=== PATIENT | male | born 1980 | race Hispanic/Latino ===

== ENCOUNTER 2024-08-21 12:15 | Observation (INO) | payer OTHER ==
[~2024-08-21] VITALS: Ht 165.1 cm; Wt 81.6 kg
[2024-08-21] VITALS (8 sets, daily range): BP systolic 131–133; BP diastolic 63–91; PULSE 59–90; RESP 17–20; TEMP 98–98.5; O2SAT 98–100
[2024-08-21] MEDS: HYDROCODONE/APAP 7.5MG-325MG 1 EA TAB PO STA (13:30)
[2024-08-21] MEDS: ONDANSETRON HCL 4 MG ORAL DISINTEGRATING TAB PO ONE (13:30)
[2024-08-21 15:55] LABS: BASOPHILS # (AUTO) 0.1 (0.0-0.1); BASOPHILS % 0.8 % (0.0-1.0); EOSINOPHILS # (AUTO) 0.1 (0.0-0.4); EOSINOPHILS % 0.8 % (0.0-6.0); HEMATOCRIT 44.4 % (38.2-49.6); LYMPHOCYTES # (AUTO) 1.9 (1.0-3.2); LYMPHOCYTES % 29.7 % (18.0-39.1); MEAN CORPUSCULAR HEMOGLOBIN 27.7 pg (28-32); MEAN CORPUSCULAR HGB CONC 33.8 g/dL (31-35); MEAN CORPUSCULAR VOLUME 82.1 fL (81-99); MONOCYTES # (AUTO) 0.7 (0.2-0.8); NEUTROPHILS # (AUTO) 3.7 (2.1-6.9); NEUTROPHILS % 57.5 % (38.7-80.0); PLATELET COUNT 278 x10e3/uL (140-360); RED BLOOD COUNT 5.41 x10e6/uL (4.3-5.7); WHITE BLOOD COUNT 6.37 x10e3/uL (4.8-10.8)
[2024-08-21 16:05] LABS: INR 0.96; PROTHROMBIN TIME 13.4 seconds (11.9-14.5)
[2024-08-21 16:06] LABS: PARTIAL THROMBOPLASTIN TIME 29.2 seconds (23.8-35.5)
[2024-08-21] MEDS: SODIUM CHLORIDE 0.9% 1000ML 1,000 ML IV SCH (16:14)
[2024-08-21 16:15] LABS: ALBUMIN 4.3 g/dL (3.5-5.0); ALBUMIN/GLOBULIN RATIO 1.3 (0.8-2.0); ANION GAP 13.1 mmol/L (8-16); BILIRUBIN,TOTAL 0.7 mg/dL (0.2-1.2); CREATININE, SERUM 0.99 mg/dL (0.72-1.25); POTASSIUM 4.1 mmol/L (3.5-5.1); TOTAL PROTEIN 7.6 g/dL (6.5-8.1)
[2024-08-21] MEDS: ONDANSETRON HCL INJ 2MG/ML 2ML 2 MG/ML VIAL IV STA (16:15)
[2024-08-21] MEDS: Morphine 4mg INJECTION 4 MG/ML INJ IV STA (16:15)
[2024-08-21] MEDS ORDERED: LIDOCAINE 4% PATCH TP PRN (16:30)
[2024-08-21] MEDS ORDERED: DOCUSATE SODIUM 100 MG CAP PO PRN (16:30)
[2024-08-21] MEDS ORDERED: BENZONATATE 100 MG CAP PO PRN (16:30)
[2024-08-21] MEDS ORDERED: POTASSIUM CHLORIDE 20 MEQ TAB CR PO PRN (16:30)
[2024-08-21] MEDS ORDERED: ALBUTEROL/IPRATROPIUM 3 ML NEB NEB PRN (16:30)
[2024-08-21] MEDS ORDERED: DIPHENHYDRAMINE HCL 25 MG CAP PO PRN (16:30)
[2024-08-21] MEDS ORDERED: ACETAMINOPHEN 325 MG TAB PO PRN (16:30)
[2024-08-21] MEDS ORDERED: HYDRALAZINE HCL 20 MG/ML VIAL IV PRN (16:30)
[2024-08-21] MEDS ORDERED: DEXTROSE 50% SYRINGE 50 ML IV PRN (16:30)
[2024-08-21] MEDS: ONDANSETRON HCL INJ 2MG/ML 2ML 2 MG/ML VIAL IV PRN (19:51)
[2024-08-21] MEDS: Morphine 4mg INJECTION 4 MG/ML INJ IV PRN (19:51)
[2024-08-21] MEDS ORDERED: MELATONIN 5 MG TABLET PO PRN (21:00)
[2024-08-21] MEDS ORDERED: FAMOTIDINE40 MG PO (22:35)
[2024-08-21] MEDS ORDERED: OMEPRAZOLE40 MG PO (22:35)
[2024-08-21] MEDS ORDERED: SUCRALFATE1 GM PO (22:35)
[2024-08-21] MEDS ORDERED: AMLODIPINE BESY10 MG PO (22:35)
[2024-08-22] VITALS (9 sets, daily range): BP systolic 115–153; BP diastolic 65–95; PULSE 51–87; RESP 17–20; TEMP 97.8–98.2; O2SAT 96–100
[2024-08-22 08:10] LABS: BASOPHILS # (AUTO) 0.1 (0.0-0.1); EOSINOPHILS # (AUTO) 0.1 (0.0-0.4); EOSINOPHILS % 2.4 % (0.0-6.0); HEMATOCRIT 44.3 % (38.2-49.6); HEMOGLOBIN 14.6 g/dL (14.0-18.0); LYMPHOCYTES # (AUTO) 1.7 (1.0-3.2); LYMPHOCYTES % 33.7 % (18.0-39.1); MEAN CORPUSCULAR VOLUME 84.9 fL (81-99); MONOCYTES # (AUTO) 0.6 (0.2-0.8); MONOCYTES % 12.4 % (4.4-11.3); NEUTROPHILS # (AUTO) 2.5 (2.1-6.9); NEUTROPHILS % 50.1 % (38.7-80.0); PLATELET COUNT 259 x10e3/uL (140-360); RED BLOOD COUNT 5.22 x10e6/uL (4.3-5.7); WHITE BLOOD COUNT 4.92 x10e3/uL (4.8-10.8)
[2024-08-22 08:30] LABS: CALCIUM 8.6 mg/dL (8.4-10.2); CREATININE, SERUM 1.09 mg/dL (0.72-1.25)
[2024-08-22] MEDS: PANTOPRAZOLE SOD 40 MG TABEC PO SCH (09:18)
[2024-08-22] MEDS ORDERED: SODIUM CHLORIDE 0.9% 100 ML ONE (21:01)
[2024-08-23] VITALS (7 sets, daily range): BP systolic 113–130; BP diastolic 70–82; PULSE 56–80; RESP 17–20; TEMP 97.8–98.3; O2SAT 95–100
[2024-08-23] MEDS: AMLODIPINE BESYLATE 10 MG TAB PO SCH (08:36)
[2024-08-23] MEDS ORDERED: CEPHALEXIN500 MG PO (13:57)
[2024-08-23] MEDS: ENOXAPARIN SOD INJ 40 MG/0.4 ML SYR SC SCH (16:48)
== END 2024-08-23 18:00 | disposition home or self-care (01) ==
LOC: ER 12:35 → ERHOLD 15:46 → MED/SURG3 16:54
PROVIDERS: ADMIT Internal Medicine; ATTEND Internal Medicine
DX: S62.645B Nondisplaced fracture of proximal phalanx of left ring finger, initial encounter for open fracture (principal); S62.635A Displaced fracture of distal phalanx of left ring finger, initial encounter for closed fracture; S62.663B Nondisplaced fracture of distal phalanx of left middle finger, initial encounter for open fracture; I10 Essential (primary) hypertension; K21.9 Gastro-esophageal reflux disease without esophagitis; S62.635B Displaced fracture of distal phalanx of left ring finger, initial encounter for open fracture; W31.89XA Contact with other specified machinery, initial encounter; Y92.89 Other specified places as the place of occurrence of the external cause; Y99.0 Civilian activity done for income or pay; Z79.899 Other long term (current) drug therapy
CPT/HCPCS: 36415 ×2; 73130; 80048; 80053; 85025 ×2; 85610; 85730; 94799 ×3; 99283; G0378 ×3; J0690 ×2; J2270 ×2; J2405; J2543 ×2; J7030 ×2; J7050 ×2; Q0162; S0164 ×2; J1650; J2470